=== PATIENT | male | born 1975 | race Caucasian/White ===

== ENCOUNTER 2022-11-02 08:34 | Outpatient (CLI) | payer SELFPAY | END 2022-11-02 08:35 | disposition home or self-care (01) | LOC: NFLDREF 20:11 | PROVIDERS: PCP Family Medicine; Visit Provider Family Medicine | DX: E78.5 Hyperlipidemia, unspecified (principal); I10 Essential (primary) hypertension; E11.9 Type 2 diabetes mellitus without complications | CPT/HCPCS: 80048; 80061; 84460 ==

== ENCOUNTER 2024-02-14 08:42 | Outpatient (CLI) | payer OTHER, SELFPAY | END 2024-02-14 08:43 | disposition home or self-care (01) | PROVIDERS: PCP Family Medicine; Visit Provider Family Medicine | DX: E78.2 Mixed hyperlipidemia (principal); I10 Essential (primary) hypertension; E11.9 Type 2 diabetes mellitus without complications | CPT/HCPCS: 80048; 80061 ==

== ENCOUNTER 2025-01-14 09:25 | Outpatient (CLI) | payer OTHER, SELFPAY | END 2025-01-14 09:26 | disposition home or self-care (01) | PROVIDERS: PCP Family Medicine; Visit Provider Family Medicine | DX: E78.5 Hyperlipidemia, unspecified (principal); E11.9 Type 2 diabetes mellitus without complications; I10 Essential (primary) hypertension | CPT/HCPCS: 80048; 80061 ==